=== PATIENT | female | born 1995 | race Caucasian/White ===

== ENCOUNTER 2019-01-18 15:20 | Emergency (ER) | payer OTHER ==
[~2019-01-18] VITALS: Ht 160 cm; Wt 59.0 kg
[2019-01-18 15:49] LABS: BASOPHILS % (AUTO) 0.5 % (0.0-2.0); EOSINOPHILS # (AUTO) 0.2 K/uL (0.0-0.7); EOSINOPHILS % (AUTO) 1.8 % (0.0-7.0); HEMATOCRIT 43.5 % (31.2-41.9); HEMOGLOBIN 14.7 g/dL (10.9-14.3); LYMPHOCYTES # (AUTO) 2.1 K/uL (20.0-40.0); LYMPHOCYTES % (AUTO) 23.6 % (20.5-51.5); MEAN CORPUSCULAR HGB CONC 34 g/dL (32.3-35.6); MEAN CORPUSCULAR VOLUME 88.8 fL (75.5-95.3); MONOCYTES # (AUTO) 0.8 K/uL (2.0-10.0); MONOCYTES % (AUTO) 8.6 % (0.0-11.0); NEUTROPHILS # (AUTO) 5.8 K/uL (1.8-8.9); NEUTROPHILS % (AUTO) 65.5 % (38.5-71.5); PLATELET COUNT (AUTO) 231 K/uL (179-408); WHITE BLOOD COUNT (AUTO) 8.8 K/uL (3.8-11.8)
[2019-01-18] MEDS ORDERED: ARIP5TAB10 PO (15:50)
[2019-01-18] MEDS ORDERED: LAMO200T2 PO (15:50)
[2019-01-18 15:55] LABS: *BILIRUBIN,URIN NEGATIVE (NEGATIVE); *BLOOD, URINE NEGATIVE (NEGATIVE); *CLARITY,URINE SLIGHTLY CLOUDY (CLEAR); *COLOR,URINE YELLOW (YELLOW); *KETONES,URINE NEGATIVE (NEGATIVE); *UROBILINOGEN,URINE 0.2 E.U./dl (NORMAL); LEUKOCYTE ESTERASE ,URINE NEGATIVE (NEGATIVE); NITRITE, URINE NEGATIVE (NEGATIVE); UGLUCOSE NEGATIVE (NEGATIVE)
[2019-01-18 15:56] LABS: *URINE HCG, QUAL NEGATIVE (NEGATIVE)
[2019-01-18 16:04] LABS: BILIRUBIN,DIRECT 0.1 mg/dL (0.0-0.2); BILIRUBIN,TOTAL 0.3 mg/dL (0.2-1.0); POTASSIUM 3.6 mmol/L (3.5-5.1); TOTAL PROTEIN, SERUM 7.7 g/dL (6.4-8.2)
[2019-01-18 16:07] LABS: BACTERIA,URINE FEW /HPF (NONE SEEN); SQUAMOUS EPITHELIAL CELL,UR MANY /HPF (NONE SEEN)
--- NOTE | 2019-01-18 16:39 | NUR ---
PATIENT BACK FROM CT IN ROOM 03A.
--- NOTE | 2019-01-18 17:10 | NUR ---
Patient discharged to home in stable conditon. Written and verbal after care instructions given. Patient verbalizes understanding of instructions.
== END 2019-01-18 17:10 | disposition home or self-care (01) ==
LOC: ER 15:28
DX: R31.9 Hematuria, unspecified (principal); N39.0 Urinary tract infection, site not specified; J45.909 Unspecified asthma, uncomplicated; F17.200 Nicotine dependence, unspecified, uncomplicated; Z79.899 Other long term (current) drug therapy
CPT/HCPCS: 36415; 83690; 84703; 85025; 87086; A4663